=== PATIENT | male | born 2000 | race Two or more races ===

== ENCOUNTER 2023-03-26 16:10 | Outpatient (REF) | payer OTHER, SELFPAY ==
--- NOTE | ~2023-03-26 | XR_ITS ---
EXAMINATION: XR KNEE, RIGHT CLINICAL INFORMATION: Pain COMPARISON: None available. TECHNIQUE: Four views of the right knee. FINDINGS: Bones and soft tissues are normal. No fracture or joint effusion. Alignment is anatomic. Joint spaces are well maintained. No abnormal soft tissue calcification. XR/XR knee RT 4V IMPRESSION: Normal right knee.
== END 2023-03-26 16:11 | disposition home or self-care (01) ==
LOC: HO.XRAY 16:10
PROVIDERS: PCP Internal Medicine; Visit Provider Internal Medicine
DX: M25.561 Pain in right knee (principal); M25.461 Effusion, right knee
CPT/HCPCS: 73564

== ENCOUNTER 2023-07-01 14:51 | Outpatient (AMB) | payer OTHER, SELFPAY ==
--- NOTE | 2023-07-01 14:52 | A.OFFPC_ITS ---
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 Accompanied by: Self / Same As Patient Allergies No Known Allergies Allergy (Verified 07/01/23 15:39) Medication List - Last Reconciled 07/01/23 by Tavon Wilcox MD meloxicam 15 mg PO DAILY PRN 15 days Tobacco use date assessed: 07/01/23 Dental Screening Dental Screen Date: 07/01/23 Did you have a dental visit in the last 12 months?: No Did you have a dental problem in the last 6 months where you did not have access to dental care?: No Was dental information given to patient?: No HPI PE HPI Details Patient comes in today for his annual physical examination States that he is still experiencing increased pain and has on and off swelling in his right knee Has been experiencing his right knee symptoms since he fell and his knee hit the sidewalk back on 03/20/23 Has knee x-rays done in March 2023 for further evaluation - x-rays came out normal States that any walking or weight-bearing causes his knee pain to increase Notes that his Meloxicam Rx has not helped much but smoking marijuana does temporarily - is requesting for us to provide him here with a medical marijuana card if possible States that he has not been able to sleep much at night often due to his increased knee pain States that he feels well otherwise He denies any headaches or dizziness Denies any chest pains, no SOB No nausea/vomiting, no abdominal pain No change in bowel habits noted Denies any acute urinary symptoms Admits that he never went to get his labs done when they were ordered after his physical exam last year [facility] Medical History Fatigue Obesity (BMI 30-39.9) Surgical History No significant past surgical history Family History Father Cardiovascular disease Mother Hypertension Social History (Updated 07/01/23 @ 15:50 by Tavon Wilcox MD) Housing: House Alcohol intake: current Alcohol intake frequency: holidays/special occasions only Patient Tobacco Use Status: Never used Tobacco e-Cigarette/Vaping Use: Never Used Second Hand Smoke Exposure: No Substance Use Type: Marijuana service: No Current occupational status: disabled Cognitive needs: No Hearing needs: No Vision needs: No Questionnaire PHQ-9 Over the last 2 weeks, how often have you been bothered by any of the following problems? 1. Little interest or pleasure in doing things: not at all 2. Feeling down, depressed, or hopeless: not at all 3. Trouble falling or staying asleep, or sleeping too much: not at all 4. Feeling tired or having little energy: not at all 5. Poor appetite or overeating: not at all 6. Feeling bad about yourself - or that you are a failure or have let yourself or your family down: not at all 7. Trouble concentrating on things, such as reading the newspaper or watching television: not at all 8. Moving or speaking so slowly that other people could have noticed. Or the opposite - being so fidgety or restless that you have been moving around a lot more than usual: not at all 9. Thoughts that you would be better off or of hurting yourself in some way: not at all Total score: 0 Depression Screening Interpretation: Negative 69301 - PHQ-9 Billing: Yes Source: Developed by Drs. Roddy Ochoa, Sierra Contreras, Red Dela Cruz and colleagues, with an educational deyanira from [employer]. Thrive Questionnaire Date Thrive assessed: 07/01/23 I am a: Patient What is your living situation today?: I have a steady place to live Within the past 12 months, did the food you bought not last and you didn't have the money to get more?: Never true Within the past 12 months, did you worry whether your food would run out before you got money to buy more?: Never true Do you have trouble paying for medicines?: No Do you have trouble getting transportation to medical appointments?: No Do you have trouble paying your heating and electricity bill?: No Do you have trouble taking care of your child, family member or friend?: No Do you have trouble with day-to-day activities such as bathing, preparing meals, shopping, managing finances, etc.?: No Are you currently unemployed and looking for a job?: No Are you interested in more education?: No Please select the resources that you would like help with: None Currently or been in a relationship where the following occur: no concerns reported AUDIT C Alcohol Use Questionnaire (AUDIT-C) 1. How often do you have a drink containing alcohol?: Monthly or less 2. How many drinks containing alcohol do you have on a typical day when you are drinking?: 1 or 2 3. How often do you have six or more drinks on one occasion?: Never Total Score: 1 Score Reviewed/Action Taken: Yes LEONIDAS-7 AMB Questionnaire LEONIDAS-7 Date LEONIDAS - 7 assessed: 07/01/23 Feeling nervous, anxious, or on edge: 0 = Not at all Not being able to stop or control worryin = Not at all Worrying too much about different things: 0 = Not at all Trouble relaxin = Not at all Being so restless that it is hard to sit still: 0 = Not at all Becoming easily annoyed or irritable: 0 = Not at all Feeling afraid as if something awful might happen: 0 = Not at all Total LEONIDAS-7 score (0-4 normal; 5-9 mild; 10-14 moderate; 15-21 severe): 0 Source: Developed by Drs. Roddy Ochoa, Sierra Contreras, Red Dela Cruz and colleagues, with an educational deyanira from [employer]. Review of Systems Const Denies chills, Reports difficulty sleeping (mostly due to his right knee pain), Denies fatigue, Denies fever(s), Denies headache(s), Denies malaise and Denies weakness Eyes Denies blurry vision, Denies change in vision, Denies irritation and Denies itchy eyes ENT Denies dysphagia, Denies dizziness, Denies otalgia, Denies headache(s), Denies nasal congestion, Denies neck pain, Denies odynophagia and Denies sore throat Card Denies chest pain, Denies rapid heart rate, Denies irregular heart rhythm, Denies palpitations and Denies dyspnea Resp Denies chest congestion, Denies cough, Denies dyspnea and Denies wheezing GI Denies abdominal pain, Denies bloating, Denies constipation, Denies dysphagia, Denies heartburn, Denies diarrhea, Denies nausea, Denies odynophagia and Denies vomiting Denies hematuria, Denies difficulty urinating, Denies dysuria, Denies urinary frequency and Denies urinary urgency Musc Denies back pain, Reports arthralgias (over the right knee - see HPI), Reports joint swelling (on and off in the right knee), Denies muscle weakness and Denies neck pain Skin/Breast Denies change in pigmentation, Denies lesions, Denies rash and Denies unusual bruising Neuro Denies dizziness, Denies headache(s), Denies paresthesias and Denies weakness Endo Denies fatigue and Denies palpitations Aller/Immun Denies itchy eyes and Denies wheezing Physical exam (Primary Care) Vital Signs: Last Vital Signs Pulse 83 07/01/23 14:54 BP 122/84 07/01/23 14:54 Pulse Ox 97 07/01/23 14:54 Oxygen Delivery Method Room Air 07/01/23 14:54 BMI result Body Mass Index 36.4 Tobacco/Smoking Status: Tobacco use Status Tobacco use date assessed 07/01/23 07/01/23 15:01 Patient Tobacco Use Status Never used Tobacco 07/01/23 14:53 e-Cigarette/Vaping Use Never Used 07/01/23 14:53 PHQ-9: PHQ-9 Score PHQ-9: Total score 0 07/01/23 15:01 Depression Screening Interpretation: Negative Thrive Assessment: Date of Thrive Assessment Date Thrive assessed 07/01/23 07/01/23 15:01 Currently or been in a relationship where the following occur: no concerns reported Const General: no acute distress, alert and awake Orientation/consciousness: patient oriented x3 HENMT Head: Yes normocephalic and Yes atraumatic Ears: external ears normal, TM's normal bilaterally and EAC's normal General nose exam: No nasal discharge present Face and sinus: Yes normal facial exam and Yes sinuses nontender Teeth and gingiva: dentition normal Throat: Yes posterior oropharynx normal and Yes tonsils normal (no TP congestion) Eyes Eyelids: Yes eyelids normal Conjunctivae: conjunctivae normal Pupils: Equal, round and reactive pupils present EOM: EOMs intact bilaterally Neck Neck: Yes no lymphadenopathy and Yes supple Thyroid: Thyroid normal Resp Auscultation: clear to auscultation bilaterally, no rales and no wheezes Cardio Rate: regular rate Rhythm: regular rhythm Heart sounds: no murmurs GI Palpation (GI): Soft to palpation, nontender and No hepatosplenomegaly present Auscultation: normal bowel sounds General: Yes no CVA tenderness Back/Spine/Pelvis Back: no CVA tenderness Thoracic/Lumbar Spine: thoracic and lumbar spine normal to inspection Skin Lesions: no lesions Rashes: no rashes Neuro General: patient oriented x3, moves all extremities, no focal motor deficits and CN's II-XI intact bilaterally Cranial nerves: Yes Equal, round and reactive pupils present Cognition (Neuro): normal cognition Extrem General: Yes no clubbing, cyanosis or edema Right lower extremity: knee Details: tenderness (around the entire knee, justin over patellar and prepatellar areas) Location: of the patella and of the infrapatellar area; no swelling Assessment and Plan Assessment & Plan (1) Annual physical exam: Code(s): Z00.00 - Encounter for general adult medical examination without abnormal findings Plan: Check labs (2) Right knee pain: Code(s): M25.561 - Pain in right knee Qualifiers: Chronicity: unspecified Qualified Code(s): M25.561 - Pain in right knee Plan: X-rays of the right knee done back in March 2023 came out normal Advised that he most likely sustained some type of bone injury on the patella when he fell Will refer him to physical therapy and also to orthopedics for further evaluation and management (3) Swelling of right knee joint: Code(s): M25.461 - Effusion, right knee Plan: Will refer him to physical therapy and to orthopedics for further evaluation and management Will send him for some additional labs for further evaluation of his recurrent knee symptoms Advised that we do NOT certify people for medical marijuana here in the practice and he needs to see someone who is certified to get a medical marijuana card and not all doctors or providers can do that (4) Obesity (BMI 30-39.9): Code(s): E66.9 - Obesity, unspecified Plan: Reinforced diet/exercise as tolerated/lose weight Plan Follow up in 6 months Orders: Orders Cholesterol Today Z00.00 - Encounter for general adult medical examination without abnormal findings Comprehensive Met. Panel Today M25.561 - Pain in right knee, Z00.00 - Encounter for general adult medical examination without abnormal findings TSH reflex Free T4 Today E78.00 - Pure hypercholesterolemia, unspecified, M25.561 - Pain in right knee, Z00.00 - Encounter for general adult medical examination without abnormal findings Uric Acid Today M25.561 - Pain in right knee Vitamin D 25-OH Total Today E55.9 - Vitamin D deficiency, unspecified, Z00.00 - Encounter for general adult medical examination without abnormal findings Complete Blood Count Auto Diff Today M25.561 - Pain in right knee, Z00.00 - Encounter for general adult medical examination without abnormal findings Erythrocyte Sedimentation Rate Today M25.561 - Pain in right knee UA CC w/rflx Micro + Cult Today R30.0 - Dysuria, Z00.00 - Encounter for general adult medical examination without abnormal findings C Reactive Protein Today M25.561 - Pain in right knee PT Evaluation and Treatment Today M25.461 - Effusion, right knee, M25.561 - Pain in right knee, S46.912A - Strain of unspecified muscle, fascia and tendon at shoulder and upper arm level, left arm, initial encounter Referrals Orthopedics Referral M25.461 - Effusion, right knee, M25.561 - Pain in right knee Coding Level of Care Code Est Pt Prev Care [id number]([id number]) Diagnoses Annual physical exam Z00.00 Right knee pain M25.561 Chronicity: unspecified Swelling of right knee joint M25.461 Obesity (BMI 30-39.9) E66.9
[2023-07-01 14:54] VITALS: BP 122/84; PULSE 83; O2SAT 97; BMI 36.4
== END 2023-07-01 15:47 | disposition home or self-care (01) ==
PROVIDERS: PCP Internal Medicine; Visit Provider Internal Medicine
DX: Z00.00 Encounter for general adult medical examination without abnormal findings (principal); M25.561 Pain in right knee; E66.9 Obesity, unspecified; Z68.36 Body mass index [BMI] 36.0-36.9, adult; M25.461 Effusion, right knee
CPT/HCPCS: 99395

== ENCOUNTER 2023-08-07 16:38 | Outpatient (RCR) | payer OTHER, SELFPAY ==
--- NOTE | 2023-08-07 17:42 | MHC.PT.EP ---
[facility] [place] Office [place] Office [address] Cristopher Parker [address] [phone] F: [phone] F: [phone] F: [phone] F: [phone] Physical Therapy Plan of Care Date of Evaluation: 08/07/23 Date of Surgery: N/A Diagnosis: right knee pain (RL) Assessment: pt is a 23 y/o male presenting to physical therapy w/ referring diagnosis of right knee pain. He presents w/ high self-reported pain scores and instability after trauma to R knee. He demonstrates increased ligamentous laxity on R side compared to L. I am suspicious of ligamentous injury. At the very least a sprain; however, I cannot completely rule out a tear w/o MRI. He does see the orthopedic on 08/16/23. Impairments include pain, decreased range of motion, decreased strength, impaired functional mobility, impaired postural awareness, and altered ambulation mechanics. pt is a good candidate for skilled PT due to age, potential remediation of impairments, typical disease/condition progression and prognosis, comorbidities, and motivation. pt would benefit from skilled PT intervention to provide a tailored strengthening and stretching exercise program, functional training, gait training, postural re-training, neuromuscular re-education, modalities as needed for pain, equipment safety demonstration. Frequency and Duration: The patient will be seen 2x/wk for 3 wks Short Term Goals: pt will be I w/ HEP to promote self-management of condition. pt will improve R knee flexion by at least 15* to promote ease in tolerance for sitting and stair navigation. Detention Goals: pt will report a statistically significant improvement in self-reported outcome measure, LEFI, to promote return to PLOF. pt will improve R quad strength to at least 4/5 to promote ease in sit<>stand transfers and stair navigation. Treatment Plan: Modalities to reduce pain, spasms and effusion. Manual therapy to restore motion and function. Therapeutic exercise to improve strength and flexibility. Neuromuscular re-education for posture and balance. Therapeutic activities to return to functional activities of daily living. Electronically signed by: Vanesa Pederson PT, DPT Please sign and return to therapist. Thank you for your referral.
--- NOTE | 2023-09-02 12:20 | MHC.PT.DC ---
[facility] [place] Office [place] Office [place] Office [address] Cristopher Parker [address] [facility] [phone] F: [phone] F: [phone] F: [phone] F: [phone] Physical Therapy Discharge Report Diagnosis: right knee pain (RL) Date of Surgery: N/A Date of Evaluation: 08/07/23 Date of Discharge: 09/02/23 Treatments to Date: 1 Cancellations to Date: 0 No Shows to Date: 2 Discharge Status: Visit Non-compliance Discharge Summary: The patient no showed the only two visits (of 8 recommended) that he scheduled. He has not called to follow-up with any additional appointments. He is discharged for non-compliance. Electronically signed by: Vanesa Pederson PT, DPT Please sign and return to therapist. Thank you for your referral.
== END 2023-09-02 12:20 | disposition home or self-care (01) ==
LOC: HO.PT 16:38
PROVIDERS: PCP Internal Medicine; Visit Provider Internal Medicine
DX: M25.561 Pain in right knee (principal)
CPT/HCPCS: 97110; 97161

== ENCOUNTER 2023-08-16 10:14 | Outpatient (REF) | payer OTHER, SELFPAY | END 2023-08-16 10:15 | disposition home or self-care (01) | LOC: HO.HOSX 10:14 | PROVIDERS: Visit Provider Physician Assistant | DX: Z13.89 Encounter for screening for other disorder (principal) ==